=== PATIENT | female | born 1965 | race Caucasian/White ===

== ENCOUNTER 2019-03-16 16:36 | Emergency (ER) | payer MEDICAID ==
[~2019-03-16] VITALS: Ht 160 cm; Wt 66.7 kg
[2019-03-16 16:51] VITALS: Ht 160 cm; Wt 66.7 kg
[2019-03-16 18:24] LABS: BASOPHIL % 0.4 % (0-2); PLATELET COUNT 257 x10^3mcL (130-400)
[2019-03-16 18:27] LABS: RED CELL DISTRIBUTION WIDTH 15.2 % (11.5-14.5)
[2019-03-16 18:34] LABS: CALCIUM 8.4 mg/dL (8.5-10.1); CARBON DIOXIDE 31.5 mmol/L (21-32); CHLORIDE SERUM 103 mmol/L (98-107); CREATININE SERUM 0.8 mg/dL (0.6-1.0); GFR1 > 60 mL/min; GLUCOSE SERUM 100 mg/dL (74-106); POTASSIUM SERUM 3.4 mmol/L (3.5-5.1); SODIUM SERUM 140 mmol/L (136-145)
[2019-03-16 18:38] LABS: ALBUMIN 3.7 g/dL (3.4-5.0); ALKALINE PHOSPHATASE 69 U/L (46-116); ALT/SGPT 34 U/L (14-59); AST/SGOT 27 U/L (15-37); BILIRUBIN TOTAL 0.24 mg/dL (0.20-1.00); LIPASE 103 IU/L (73-393); TOTAL PROTEIN, SERUM 7.1 g/dL (6.4-8.2)
[2019-03-16 19:53] VITALS: BP 127/80
== END 2019-03-16 19:53 | disposition home or self-care (01) ==
LOC: ED 16:36
PROVIDERS: Emergency Medicine
DX: K52.9 Noninfective gastroenteritis and colitis, unspecified (principal); F41.9 Anxiety disorder, unspecified
CPT/HCPCS: 36415

== ENCOUNTER 2019-04-27 20:54 | Emergency (ER) | payer MEDICAID ==
[~2019-04-27] VITALS: Ht 157.5 cm; Wt 64.9 kg
[2019-04-27 21:06] VITALS: Ht 157.5 cm; Wt 64.9 kg
[2019-04-28 00:12] VITALS: BP 146/91
== END 2019-04-28 00:12 | disposition home or self-care (01) ==
LOC: ED 20:54
DX: M71.22 Synovial cyst of popliteal space [Baker], left knee (principal); F41.9 Anxiety disorder, unspecified
CPT/HCPCS: J1885